=== PATIENT | female | born 1955 | race Caucasian/White ===

== ENCOUNTER 2017-08-31 02:23 | Observation (INO) | payer BC ==
[2017-08-31 03:03] LABS: BASOPHILS 0.1 % (0-2); EOSINOPHILS 0.5 % (0-7); HEMATOCRIT 40.8 % (36.0-48.0); HEMOGLOBIN 13.9 g/dL (12-16); IMMATURE GRANULOCYTES 0.2 % (0-5); MCH 29.9 pg (26.0-34.0); MCHC 34.1 g/dL (31.0-37.0); MCV 87.7 fL (80.0-100.0); MEAN PLATELET VOLUME 11.6 fL (7.4-10.4); MONOCYTES 2.8 % (2-11); NEUTROPHILS 93.4 % (40-80); PLATELET COUNT 280 10x3/uL (130-400); RBC 4.65 10x6/uL (4.00-5.40); RDW 14.4 % (11.5-14.5); WBC 13.6 10x3/uL (4.8-10.8)
[2017-08-31 03:20] LABS: APPEARANCE CLEAR (CLEAR); BILIRUBIN NEGATIVE (NEGATIVE); COLOR YELLOW (YELLOW); GLUCOSE 1000 mg/dL (NEGATIVE); KETONE SMALL mg/dL (NEGATIVE); NITRITE NEGATIVE (NEGATIVE); PROTEIN NEGATIVE (NEGATIVE); SPECIFIC GRAVITY 1.005 (1.005-1.020); UROBILINOGEN NORMAL (NORMAL)
[2017-08-31 03:23] LABS: ALKALINE PHOSPHATASE 84 U/L (46-116); ALT (SGPT) 33 U/L (10-68); CALC OSMOLALITY 291 mosm/kg (275-300); CALCIUM 9.1 mg/dL (8.5-10.1); CARBON DIOXIDE 26.7 mmol/L (21.0-32.0); CHLORIDE - SERUM 99 mmol/L (98-107); CREATININE - SERUM 1.4 mg/dL (0.6-1.3); GLUCOSE 258 mg/dL (74-106); POTASSIUM - SERUM 4.1 mmol/L (3.5-5.1); PROTEIN - SERUM 7.7 g/dL (6.4-8.2); SODIUM 139 mmol/L (136-145); UREA NITROGEN 26 mg/dL (7-18); eGFR NON AFRICAN AMERICAN 40 mL/min (90-120)
[2017-08-31 03:35] LABS: AMYLASE - SERUM 44 U/L (25-115); CKMB 0.5 U/L (0.0-3.6); CREATINE KINASE 54 UL (21-215); LIPASE 156 U/L (73-393); MAGNESIUM - SERUM 1.8 mg/dL (1.8-2.4); TROPONIN-I < 0.017 ng/mL (0.000-0.060)
[2017-08-31] MEDS ORDERED: FARXIGA10 MG PO (06:14)
[2017-08-31] MEDS ORDERED: CELEXA20 MG PO (06:14)
[2017-08-31] MEDS ORDERED: ZOCOR40 MG PO (06:15)
[2017-08-31] MEDS ORDERED: GLUCOPHAGE1000 MG PO (06:15)
[2017-08-31] MEDS ORDERED: GLUCOTROL XL 1010 MG PO (06:15)
[2017-08-31] MEDS ORDERED: CLARITIN 10 MG10 MG PO (06:16)
[2017-08-31] MEDS ORDERED: LISINOPRIL5 MG PO (06:16)
[2017-08-31] MEDS ORDERED: BAYER CHEWABLE81 MG PO (06:16)
[2017-08-31] MEDS ORDERED: CALCIUM 500 + D1 TAB PO (06:17)
[2017-08-31 08:34] VITALS: BP 94/54
[2017-08-31 11:52] VITALS: BP 99/61
[2017-08-31 16:17] VITALS: BP 92/55
[2017-08-31 18:03] LABS: ERYTHROCYTE SEDIMENTATION RATE 5 mm/hr (0-30)
[2017-08-31 20:00] VITALS: BP 92/55
[2017-09-01] VITALS: BP 102/52
[2017-09-01 04:00] VITALS: BP 100/56
[2017-09-01 05:41] LABS: BASOPHILS 0.2 % (0-2); EOSINOPHILS 5.7 % (0-7); HEMATOCRIT 34.1 % (36.0-48.0); HEMOGLOBIN 11.5 g/dL (12-16); LYMPHOCYTES 30.5 % (15-50); MCH 29.5 pg (26.0-34.0); MCHC 33.7 g/dL (31.0-37.0); MCV 87.4 fL (80.0-100.0); MONOCYTES 12.3 % (2-11); NEUTROPHILS 51.3 % (40-80); RDW 14.6 % (11.5-14.5)
[2017-09-01 05:47] LABS: PLATELET COUNT 190 10x3/uL (130-400); WBC 4.1 10x3/uL (4.8-10.8)
[2017-09-01 06:02] LABS: CALCIUM 8.5 mg/dL (8.5-10.1); CARBON DIOXIDE 24.2 mmol/L (21.0-32.0); CHLORIDE - SERUM 104 mmol/L (98-107); POTASSIUM - SERUM 3.8 mmol/L (3.5-5.1); SODIUM 140 mmol/L (136-145); UREA NITROGEN 21 mg/dL (7-18); eGFR NON AFRICAN AMERICAN 77 mL/min (90-120)
[2017-09-01 06:06] LABS: CALC OSMOLALITY 283 mosm/kg (275-300); CREATININE - SERUM 0.8 mg/dL (0.6-1.3); GLUCOSE 127 mg/dL (74-106)
[2017-09-01 07:53] VITALS: BP 101/59
[2017-09-01 11:00] VITALS: BP 110/70
[2017-09-01 16:18] VITALS: BP 103/57
[2017-09-01 21:05] VITALS: BP 125/71
[2017-09-02 01:47] VITALS: BP 97/52
[2017-09-02 05:20] VITALS: BP 138/64
[2017-09-02 05:42] LABS: BASOPHILS 0.4 % (0-2); EOSINOPHILS 5.7 % (0-7); HEMATOCRIT 35.5 % (36.0-48.0); HEMOGLOBIN 11.8 g/dL (12-16); LYMPHOCYTES 35.6 % (15-50); MCH 29.2 pg (26.0-34.0); MCHC 33.2 g/dL (31.0-37.0); MCV 87.9 fL (80.0-100.0); MONOCYTES 12.9 % (2-11); NEUTROPHILS 45.4 % (40-80); PLATELET COUNT 210 10x3/uL (130-400); RBC 4.04 10x6/uL (4.00-5.40); RDW 14.1 % (11.5-14.5); WBC 5.1 10x3/uL (4.8-10.8)
[2017-09-02 05:57] LABS: ANION GAP 12.6 mmol/L (8-16); CARBON DIOXIDE 27.6 mmol/L (21.0-32.0); CREATININE - SERUM 0.9 mg/dL (0.6-1.3); POTASSIUM - SERUM 4.2 mmol/L (3.5-5.1)
[2017-09-02 07:34] VITALS: BP 101/59
[2017-09-02 15:13] VITALS: BP 108/64
[2017-09-02 20:00] VITALS: BP 113/65
[2017-09-03 04:00] VITALS: BP 112/71
[2017-09-03 06:01] LABS: BASOPHILS 0.5 % (0-2); EOSINOPHILS 4.7 % (0-7); HEMATOCRIT 36.9 % (36.0-48.0); HEMOGLOBIN 12.5 g/dL (12-16); IMMATURE GRANULOCYTES 0.2 % (0-5); MCH 29.1 pg (26.0-34.0); MCHC 33.9 g/dL (31.0-37.0); MEAN PLATELET VOLUME 11.1 fL (7.4-10.4); NEUTROPHILS 48.6 % (40-80); PLATELET COUNT 235 10x3/uL (130-400); RBC 4.29 10x6/uL (4.00-5.40); RDW 13.9 % (11.5-14.5); WBC 6.2 10x3/uL (4.8-10.8)
[2017-09-03 06:09] LABS: CALC OSMOLALITY 283 mosm/kg (275-300); CALCIUM 8.7 mg/dL (8.5-10.1); CARBON DIOXIDE 26.9 mmol/L (21.0-32.0); CHLORIDE - SERUM 103 mmol/L (98-107); CREATININE - SERUM 0.8 mg/dL (0.6-1.3); GLUCOSE 150 mg/dL (74-106); POTASSIUM - SERUM 3.8 mmol/L (3.5-5.1); SODIUM 139 mmol/L (136-145); UREA NITROGEN 20 mg/dL (7-18); eGFR NON AFRICAN AMERICAN 77 mL/min (90-120)
[2017-09-03 07:35] VITALS: BP 119/68
[2017-09-03] MEDS ORDERED: CARAFATE1 G PO (10:09)
[2017-09-03] MEDS ORDERED: PROTONIX40 MG PO (10:11)
[2017-09-03 11:16] VITALS: BP 102/60
== END 2017-09-03 14:23 | disposition home or self-care (01) ==
LOC: D.ER 02:23 → D.M2 04:54 → OBSVTIME 04:54 → D.M2 09-03 14:23
PROVIDERS: Emergency Medicine; Internal Medicine Nephrology
DX: K29.70 Gastritis, unspecified, without bleeding (principal); K25.9 Gastric ulcer, unspecified as acute or chronic, without hemorrhage or perforation; E11.9 Type 2 diabetes mellitus without complications; N17.9 Acute kidney failure, unspecified; E78.5 Hyperlipidemia, unspecified; K21.9 Gastro-esophageal reflux disease without esophagitis; F32.9 Major depressive disorder, single episode, unspecified; R00.0 Tachycardia, unspecified